=== PATIENT | female | born 1965 | race Caucasian/White ===

== ENCOUNTER 2021-06-26 07:03 | Emergency (ER) | payer OTHER, SELFPAY ==
[2021-06-26 07:15] VITALS: BP 189/94; PULSE 77; RESP 18; TEMP 36.8; O2SAT 97; BMI 40.1
[2021-06-26 07:30] VITALS: BP 259/155; PULSE 92; RESP 24; TEMP 36.7; O2SAT 96
--- NOTE | 2021-06-26 07:37 | W.ED.EXTPRO ---
HPI - Extremity Problem General: Chief complaint: Extremity Problem,Nontraumatic Stated complaint: fall 1 week ago, Neck pain, Left arm pain Time Seen by Provider: 06/26/21 07:04 History of Present Illness: HPI Narrative: Patient is a 55-year-old female who comes to the ED with left shoulder and left neck pain. Patient says she had a fall on June 13 when she stepped in a hole outside in her yard. Denies any pain in neck or shoulder immediately after injury but says that pain started mild layer and has continued to get worse. She says this morning she woke up and she was having terrible left shoulder and neck pain. It hurts for her to abduct her left arm. She says the neck pain starts up with her cervical spine and then shoots down into her shoulder. She denies any recent injury or trauma besides her fall on June 13. Patient lives in [place] and has a PCP that she sees there. Associated symptoms: Deny chest pain, fever(s) or rash Review of Systems Const: Denies: fever(s), chills or fatigue Eyes: Denies: change in vision or eye discomfort ENMT: Denies: throat pain, odynophagia, nasal discharge or nasal congestion Card: Denies: chest pain, palpitations, edema, swelling of feet/ankles, dyspnea on exertion or orthopnea Resp: Denies: dyspnea, productive cough or non-productive cough GI: Denies: abdominal pain, nausea, vomiting, diarrhea, constipation or hematochezia : Denies: flank pain, dysuria or hematuria Musc: Reports: neck pain and extremity pain (left shoulder); Denies: back pain or extremity swelling Skin/Breast: Denies: rash or new lesions Neuro: Denies: headache(s), numbness in extremities or weakness in extremities Physical Exam Const: COMMON NORMALS: patient oriented x3 and alert GENERAL APPEARANCE: cooperative and in distress (Patient was crying during most of exam) HENMT: COMMON NORMALS: normocephalic HEAD & SCALP: normocephalic MOUTH: Normal oral and palatal mucosa present THROAT: posterior oropharynx normal and uvula midline Eye: COMMON NORMALS: Equal, round and reactive pupils present and EOMs intact bilaterally PUPIL: Yes Equal, round and reactive pupils present Neck/C-Spine: COMMON NORMALS: supple GENERAL: Yes normal visual inspection CERVICAL SPINE: No Cervical spine tenderness, Yes Paracervical muscle tenderness bilateral and Yes Trapezius muscle tenderness left Resp: COMMON NORMALS: normal respiratory effort, No retractions, No use of accessory muscles and clear to auscultation bilaterally AUSCULTATION: clear to auscultation bilaterally Cardio: COMMON NORMALS: regular rate, regular rhythm, S1 normal heart sound present, S2 normal heart sound present, No gallops present (Cardio), No clicks present (Cardio), No murmurs present (Cardio) and Peripheral pulses 2+ throughout RATE: regular rate RHYTHM: regular rhythm HEART SOUNDS: S1 normal heart sound present and S2 normal heart sound present PERIPHERAL PULSES: Peripheral pulses 2+ throughout GI: COMMON NORMALS: Normal to inspection, nondistended, normoactive bowel sounds present, Soft to palpation, non-tender and no masses PALPATION: Yes Soft to palpation : COMMON NORMALS: Yes no CVA tenderness BLADDER/KIDNEY EXAM: Yes no CVA tenderness Back/Pelvis: COMMON NORMALS: no CVA tenderness Extremity: LEFT UPPER EXTREMITY: Yes shoulder joint Left shoulder joint: Yes inspection (No visible deformity noted), Yes palpation (Tender over AC joint), Yes ROM (Refuses to abduct left arm due to pain) and Yes neurovascular exam (Neurovascular intact) Neuro: COMMON NORMALS: patient oriented x3, CN's II-XII intact bilaterally, moves all extremities, no focal motor deficits and no sensory deficits noted SENSORIUM/ORIENTATION: Yes alert SENSORY EXAM: Yes extremities (intact) Skin: GENERAL SKIN EXAM: dry skin Course Vital Signs: Vital signs: Vital Signs Temperature 98.0 F 06/26/21 07:30 Pulse Rate 92 06/26/21 07:30 Respiratory Rate 24 H 06/26/21 08:02 Blood Pressure 259/155 06/26/21 07:30 Pulse Oximetry 96 06/26/21 07:30 MDM - Extremity (Nontraumatic) MDM Narrative: Medical decision making narrative: Patient is a 55-year-old female who comes to the ED with neck pain and left shoulder pain. Patient says she had a fall at her home on June 13. Her neck and shoulder pain got worse within the last 24 hours. Denies any other injuries or trauma. Patient had some left shoulder AC joint tenderness. She refused to abduct arm due to pain. Neurovascular tact distally. She also had some bilateral paracervical muscle tenderness along with left trapezius muscle tenderness. Patient was acting pretty hysterical and crying sobbing in pain and blood pressure readings were difficult to obtain. The nurse did get an elevated blood pressure of 259/155, but unsure if that is accurate due to patient's constant moving and sobbing. After patient received pain meds and she calm down her blood pressure returned to normal. I got a CT of head on patient and it showed no acute findings. Patient has no neurological symptoms and neuro exam was benign. CT cervical spine showed no acute fractures or findings and left shoulder x-ray showed no acute fractures or findings patient was diagnosed with left shoulder pain and neck pain and she was discharged home with a shoulder sling to use for the next couple days to allow for it to heal. She was told to contact her PCP in [facility] to get an appointment set up with them for reevaluation in the next week. She was sent home with a prescription for Celebrex and cyclobenzaprine. Return to ED precautions given. Patient understood and agree with plan. Imaging Data^: CT Head: Attestation: I personally reviewed and interpreted this imaging study as follows: Radiologist's impression: [address] [place] [address] CT Scan Report Signed Patient: Viki Fox Unit #: [id number] : 1965 Age/Sex: 55 / F ADM Date: 06/26/21 Loc: ER Room/Bed: Attending Dr: Ordering Provider/Ordering MD: Abhi Cisneros Date of Service: 06/26/21 Procedure(s): CT head wo con* [id number] Accession Number(s): [id number] Report Number: [id number] PROCEDURE INFORMATION: Exam: CT Head Without Contrast Exam date and time: 06/26/2021 7:37 AM Age: 55 years old Clinical indication: Injury or trauma; Fall; Blunt trauma (contusions or hematomas); Additional info: Fall w/ systolic BP over 200 TECHNIQUE: Imaging protocol: Computed tomography of the head without contrast. Radiation optimization: All CT scans at this facility use at least one of these dose optimization techniques: automated exposure control; mA and/or kV adjustment per patient size (includes targeted exams where dose is matched to clinical indication); or iterative reconstruction. COMPARISON: No relevant prior studies available. RADIATION DOSE METRICS: Total DLP (mGy-cm): 1721.44 FINDINGS: Brain: There are no areas of abnormally increased or decreased brain parenchymal attenuation. No abnormal intra-axial or extra-axial fluid collections are identified. There is no midline shift. No intracranial hemorrhage identified. Ventricles: The ventricular system is within normal limits for size and configuration. Bones/joints: Unremarkable as visualized. Sinuses: Visualized sinuses are unremarkable. No fluid levels. Mastoid air cells: Visualized mastoid air cells are well aerated. Soft tissues: Unremarkable. CT/CT head wo con* [id number] IMPRESSION: 1. No acute intracranial abnormality identified. Radiation Dose CTDIVOL = (mGy): DLP = 1721.44 (mGy-cm) Dictated By: Charles Sanchez MD Signed By: Charles Sanchez MD Signed Date/Time: 06/26/21900 DD/ 6 Xray Ortho: Attestation: I personally reviewed and interpreted this imaging study as follows: Radiologist's impression: [address] [address] XRay Report Signed Patient: Viki Fox Unit #: [id number] : 1965 Age/Sex: 55 / F ADM Date: 06/26/21 Loc: ER Room/Bed: Attending Dr: Ordering Provider/Ordering MD: Abhi Cisneros Date of Service: 06/26/21 Procedure(s): XR shoulder LT min 2V* [id number] Accession Number(s): [id number] Report Number: [id number] PROCEDURE INFORMATION: Exam: XR Left Shoulder Exam date and time: 06/26/2021 7:37 AM Age: 55 years old Clinical indication: Injury or trauma; Fall; Blunt trauma (contusions or hematomas); Shoulder; Left; Additional info: Fall with shoulder pain TECHNIQUE: Imaging protocol: XR Left shoulder. Views: 2 or more views. COMPARISON: No relevant prior studies available. FINDINGS: Bones/joints: Normal. Soft tissues: Normal. XR/XR shoulder LT min 2V* [id number] IMPRESSION: No acute findings. Radiation Dose CTDIVOL = (mGy): DLP = (mGy-cm) Dictated By: Guzman Briscoe Signed By: Guzman Briscoe Signed Date/Time: 06/26/21 0900 DD/ [address]: Attestation: I personally reviewed and interpreted this imaging study as follows: Radiologist's impression: [facility] [address] [address] Scan Report Signed Patient: Viki Fox Unit #: [id number] : 1965 Age/Sex: 55 / F ADM Date: 06/26/21 Loc: ER Room/Bed: Attending Dr: Ordering Provider/Ordering MD: Abhi Cisneros Date of Service: 06/26/21 Procedure(s): CT cervical spin wo con* [id number] Accession Number(s): [id number] Report Number: [id number] PROCEDURE INFORMATION: Exam: CT Cervical Spine Without Contrast Exam date and time: 06/26/2021 7:37 AM Age: 55 years old Clinical indication: Injury or trauma; Fall; Blunt trauma; Additional info: Fall with neck pain TECHNIQUE: Imaging protocol: Computed tomography images of the cervical spine without contrast. Radiation optimization: All CT scans at this facility use at least one of these dose optimization techniques: automated exposure control; mA and/or kV adjustment per patient size (includes targeted exams where dose is matched to clinical indication); or iterative reconstruction. COMPARISON: CT head wo con* [id number] 06/26/2021 8:14 AM RADIATION DOSE METRICS: Total DLP (mGy-cm): 802.35 FINDINGS: Vertebrae: There is straightening of the normal cervical lordosis. This may be positional or due to muscle spasm. There is otherwise normal alignment of the cervical spine. No fractures or dislocations identified. Vertebral body heights are well maintained throughout. Discs/Spinal canal/Neural foramina: Mild degenerative disc disease at C3-C4 and C4-C5. Moderate degenerative disc disease at C5-C6 and C6-C7. The bony spinal canal is patent. Soft tissues: No prevertebral soft tissue swelling identified. Lungs: Lung apices are unremarkable as visualized. CT/CT cervical spin wo con* [id number] IMPRESSION: 1. No fractures or dislocations identified involving the cervical spine. Radiation Dose CTDIVOL = (mGy): DLP = 802.35 (mGy-cm) Dictated By: Charles Sanchez MD Signed By: Charles Sanchez MD Signed Date/Time: 06/26/21904 DD/ 6 Discharge Plan Discharge Patient Disposition: Home Clinical Impression: Neck pain Left shoulder pain Qualifiers: Chronicity: acute Qualified Code(s): M25.512 - Pain in left shoulder Condition: Stable Prescriptions: New Celebrex 100 mg capsule 100 mg PO BID PRN (Reason: pain) Qty: 20 RF: 0 cyclobenzaprine 10 mg tablet 10 mg PO BID PRN (Reason: muscle spasm) Qty: 20 RF: 0 Discharge Orders: Discharge ED (Routine); Ordered 06/26/21 Ordered By: Abhi Cisneros Discharge Diet: Regular Discharge Activity: Resume usual activity Patient Instructions: Shoulder Pain (ED) Activity Restrictions/Additional Instructions: Follow-up with medical provider as directed in 7 to 10 days for reevaluation. Take medications as prescribed. Use sling for the next couple days to help give shoulder time to rest and heal. Make sure no remove arm from sling multiple times throughout the day and do some range of motion exercises to prevent shoulder freeze. Apply cold pack on sore neck and shoulder as well to help with symptoms. Return to the ER or your medical provider if condition worsens. Please read and understand discharge instructions. Thank you for choosing [facility] for your healthcare needs today. Please realize this is an emergency room and that we are providing you with a medical screening exam and this may not be complete and all inclusive of all the testing and or work up that you may need to determine your ailment or severity of your illness. It is very important that you follow up as instructed or that you return to the Emergency Department should you have concerns or if your condition changes or worsens in any way. Coding Level of Care Code ED Supervisor Travel Trailer for [facility] Exam Comprehensive
[2021-06-26] MEDS: ondansetron 2 mg/ML SDV 2 mL 4 MG IM (08:00)
[2021-06-26 08:02] VITALS: RESP 24
[2021-06-26] MEDS: morphine 4 mg/mL SDV 1 mL IM (08:02)
[2021-06-26 10:00] VITALS: BP 170/90
== END 2021-06-26 09:38 | disposition home or self-care (01) ==
PROVIDERS: Emergency Provider Physician Assistant
DX: M54.2 Cervicalgia (principal); M25.512 Pain in left shoulder
CPT/HCPCS: 70450; 72125; 73030; 96372; 99283; J2270; J2405